=== PATIENT | male | born 1940 | race Caucasian/White ===

== ENCOUNTER 2019-03-03 05:02 | Inpatient (IN) | payer MEDICARE, BC ==
[2019-02-26 09:38] LABS: BASOPHILS # (AUTO) 0.1 X10'3 (0-0.2); BASOPHILS % (AUTO) 0.6 % (0-1); EOSINOPHILS # (AUTO) 0.2 X10'3 (0-0.9); EOSINOPHILS % (AUTO) 2.3 % (0-6); HEMATOCRIT 42.1 % (42.0-52.0); HEMOGLOBIN 14.3 g/dl (14.0-17.9); LYMPHOCYTES # (AUTO) 2.7 X10'3 (1.1-4.8); LYMPHOCYTES % (AUTO) 29.5 % (21-51); MEAN CORPUSCULAR HEMOGLOBIN 34.5 PG (27.0-31.0); MEAN CORPUSCULAR VOLUME 101.5 FL (78-98); MEAN PLATELET VOLUME 8.3 FL (7.4-10.4); MONOCYTES % (AUTO) 10.9 % (2-12); NEUTROPHILS # (AUTO) 5.2 X10'3 (1.8-7.7); NEUTROPHILS % (AUTO) 56.7 % (42-75); PLATELET COUNT 297 X10'3 (140-440); RED BLOOD COUNT 4.15 X10'6 (4.70-6.10); RED CELL DISTRIBUTION WIDTH 14.8 % (11.5-14.5); WHITE BLOOD COUNT 9.3 X10'3 (4.5-11.0)
[2019-02-26 09:42] LABS: ALBUMIN 3.8 G/DL (3.4-5.0); ANION GAP 8 (8-16); BLOOD UREA NITROGEN 17 MG/DL (7-18); CALCIUM 9.6 MG/DL (8.5-10.1); CHLORIDE 108 MMOL/L (99-107); GLUCOSE 101 MG/DL (70-104); POTASSIUM 3.7 MMOL/L (3.5-5.1); SODIUM 143 MMOL/L (135-145); TOTAL CARBON DIOXIDE 26.7 MMOL/L (24-32); eGFR 73 ML/MIN
[2019-02-26 09:48] LABS: PARTIAL THROMBOPLASTIN TIME 25 SECONDS (22-32)
[2019-03-03] VITALS (17 sets, daily range): BP systolic 116–164; BP diastolic 66–93
[~2019-03-03] VITALS: Ht 182.9 cm; Wt 81.5 kg
[2019-03-03] MEDS ORDERED: LIDOcaine/PRILOcaine 5gm cream TP ONE (05:25)
[2019-03-03] MEDS ORDERED: diphenhydrAMINE 25mg capsule PO PRN (05:25)
[2019-03-03] MEDS ORDERED: LORazepam 0.5 MG tablet PO PRN (05:25)
[2019-03-03] MEDS ORDERED: ZOLP10TA5 PO (05:43)
[2019-03-03] MEDS ORDERED: VITA-268 PO (05:43)
[2019-03-03] MEDS ORDERED: EVOL140S (05:43)
[2019-03-03] MEDS ORDERED: MULT-1085 PO (05:43)
[2019-03-03] MEDS ORDERED: ATOR10TA87 PO (05:43)
[2019-03-03] MEDS ORDERED: IODI150T (05:43)
[2019-03-03] MEDS ORDERED: OMEGA 3 (05:43)
[2019-03-03] MEDS ORDERED: FLO0.4C PO (05:43)
[2019-03-03] MEDS ORDERED: ASPI-611 PO (05:43)
[2019-03-03] MEDS ORDERED: ALLO300T8 PO (05:43)
[2019-03-03] MEDS: normal saline 1,000 ML IV SCH ×2 (05:49→11:12)
[2019-03-03] MEDS ORDERED: fentaNYL/PF 50MCG/1 ML 2ML syringe ONE (05:59)
[2019-03-03] MEDS ORDERED: midazolam 2 mg/2 ml injection ONE (05:59)
[2019-03-03] MEDS ORDERED: LIDOcaine 1% (10mg/ml)w/preservative injection 20ml MDV ONE (06:00)
[2019-03-03] MEDS ORDERED: iohexol 350MG/ML 100ml bottle IV ONE (06:00)
[2019-03-03] MEDS ORDERED: heparin 1,000unit/ml 10ml vial 10 ML ONE (06:27)
[2019-03-03] MEDS ORDERED: verapamil 2.5 mg/ml inj IV ONE (06:27)
[2019-03-03] MEDS ORDERED: nitroGLYCERIN-Tridil 50MG/D5W 250 ML IV ONE (06:27)
[2019-03-03] MEDS ORDERED: OXAZEpam 15mg capsule PO PRN (07:35)
[2019-03-03] MEDS ORDERED: HYDROcodone/acetaminophen 5mg/325mg tablet PO PRN (07:35)
[2019-03-03] MEDS ORDERED: ondansetron/PF 4mg/2ml inj IV PRN (07:35)
[2019-03-03] MEDS ORDERED: acetaminophen 325mg tablet PO PRN (07:35)
[2019-03-03] MEDS ORDERED: proCHLORperazine 10 MG/2 ml inj IV PRN (07:35)
[2019-03-03] MEDS ORDERED: LIDOcaine 2% (20 mg/ml) 5ml cardiac syringe ONE (08:00)
[2019-03-03] MEDS ORDERED: heparin 10,000 units/1 ML INJ ONE ×2 (08:00)
[2019-03-03] MEDS ORDERED: phenylephrine 10mg/ml inj. ONE (08:00)
[2019-03-03] MEDS ORDERED: calcium chloride 100 MG/1 ML inj IV ONE (08:00)
[2019-03-03] MEDS ORDERED: aminocaproic acid 250 MG/1 ML inj. ONE (08:00)
[2019-03-03] MEDS ORDERED: sodium bicarbonate (8.4%) 1 mEq/ml syringe ONE (08:00)
[2019-03-03] MEDS ORDERED: methylPREDNISolone sod. succ. 500mg inj ONE (08:00)
[2019-03-03] MEDS ORDERED: magnesium 1 GM/2 ML inj ONE (08:00)
[2019-03-03] MEDS ORDERED: albumin (human) 25% 100 ML IV solution IV ONE (08:00)
[2019-03-03] MEDS: HYDROcodone/acetaminophen 10/325mg tab PO PRN ×2 (10:11→20:35)
--- NOTE | 2019-03-03 10:45 | NUR ---
Problems reprioritized. Patient report given, questions answered & plan of care reviewed with CARLOS CONTRERAS.
--- NOTE | 2019-03-03 10:55 | NUR ---
Patient in room MED 307. I have received report from CARLOS Denny and had the opportunity to ask questions and assume patient care.
[2019-03-03] MEDS ORDERED: insulin regular, human 100 UNIT in normal saline 100ml IV soln 100 ML IV SCH ×2 (12:04)
[2019-03-03] MEDS ORDERED: dextrose 50%-water 50ml dispensing syringe IV PRN (12:05)
[2019-03-03] MEDS ORDERED: magnesium 2GM in 50ml NS 50 ML IV PRN (12:05)
[2019-03-03] MEDS ORDERED: potassium Cl 20mEq/100mL bag 100 ML IV PRN (12:05)
[2019-03-03] MEDS ORDERED: potassium Cl 20 mEq SR tablet PO PRN (12:05)
[2019-03-03] MEDS ORDERED: magnesium 4gm in 100ml NS 100 ML IV PRN (12:05)
[2019-03-03] MEDS ORDERED: insulin glargine (Lantus) pen - multi-dose SQ PRN (12:05)
[2019-03-03] MEDS ORDERED: MALTODEXTRIN/FRUCTOSE 0.68 KCAL/ML LIQUID 296ML BOTTLE PO ONE (12:05)
[2019-03-03] MEDS ORDERED: gabapentin 400mg capsule PO ONE (12:05)
[2019-03-03] MEDS ORDERED: MESSAGE TO NURSING PO ONE ×4 (12:05)
[2019-03-03 12:34] LABS: HEMATOCRIT 39.5 % (42.0-52.0); HEMOGLOBIN 13.3 g/dl (14.0-17.9); MEAN CORPUSCULAR HEMOGLOBIN 34.4 PG (27.0-31.0); MEAN CORPUSCULAR HGB CONC 33.7 g/dL (33.0-36.5); MEAN CORPUSCULAR VOLUME 102.1 FL (78-98); MEAN PLATELET VOLUME 8.2 FL (7.4-10.4); PLATELET COUNT 262 X10'3 (140-440); RED BLOOD COUNT 3.86 X10'6 (4.70-6.10); RED CELL DISTRIBUTION WIDTH 14.5 % (11.5-14.5); WHITE BLOOD COUNT 9.4 X10'3 (4.5-11.0)
[2019-03-03 12:46] LABS: HEMOGLOBIN A1C 5.3 % (4.5-6.2)
[2019-03-03] MEDS ORDERED: ringers solution, lacted 1,000 ML IV ONE (12:59)
[2019-03-03 13:23] LABS: ALBUMIN 3.3 G/DL (3.4-5.0); ANION GAP 7 (8-16); BLOOD UREA NITROGEN 17 MG/DL (7-18); BUN/CREATININE RATIO 19.1 (5.4-32.0); CALCIUM 8.8 MG/DL (8.5-10.1); CHLORIDE 109 MMOL/L (99-107); CHOL/HDL RATIO 1.6 (0.00-4.99); CHOLESTEROL 120 MG/DL (0-200); CREATININE 0.89 MG/DL (0.60-1.10); GLUCOSE 95 MG/DL (70-104); HDL CHOLESTEROL 73 MG/DL (35-60); LDL CHOLESTEROL 41 MG/DL (50-100); POTASSIUM 3.9 MMOL/L (3.5-5.1); SODIUM 144 MMOL/L (135-145); TOTAL CARBON DIOXIDE 28.3 MMOL/L (24-32); TRIGLYCERIDES 65 MG/DL (20-135); eGFR 83 ML/MIN
--- NOTE | 2019-03-03 18:10 | NUR ---
Problems reprioritized. Patient report given, questions answered & plan of care reviewed with CARLOS Cleveland.
--- NOTE | 2019-03-03 18:15 | NUR ---
Patient in room MED 307. I have received report from CARLOS Gill and had the opportunity to ask questions and assume patient care.
[2019-03-03] MEDS ORDERED: metoprolol tartrate 12.5mg (1/2 tablet) PO SCH (20:00)
[2019-03-03] MEDS: mupirocin 2% nasal ointment 1gm UD NS SCH (20:30)
[2019-03-03] MEDS ORDERED: zolpidem 5mg tablet PO PRN (21:00)
[2019-03-03 21:11] LABS: ABG BASE EXCESS -0.1 mmol/L (-2.0-3.0); ABG HCO3 23.9 mmol/L (22.0-26.0); ABG OXYGEN SATURATION 96.1 % (95-98); ABG PCO2 (T) 36.6 mmHg (35.0-45.0); ABG PH (T) 7.432 (7.350-7.450); ABG PO2 (T) 80.2 mmHg (83-108); ALLEN'S TEST Positive; FCOHb 0.1 % (0.5-1.5); FMetHb 0.1 % (0.3-1.12); FO2Hb 95.9 % (94-100); RESPIRATORY RATE (OBSERVED) 16 b/min; TOTAL HEMOGLOBIN 13.1 G/dl (14.0-17.9)
[2019-03-04] VITALS (17 sets, daily range): BP systolic 82–145; BP diastolic 3–82
[2019-03-04] MEDS: normal saline 1,000 ML IV SCH (01:25)
[2019-03-04] MEDS: HYDROcodone/acetaminophen 10/325mg tab PO PRN ×2 (02:26→20:04)
[2019-03-04] MEDS ORDERED: ceFAZolin 1GM/D5W- ADD-VANTAGE 50 ML IV ONE ×2 (02:50→05:30)
[2019-03-04 05:18] LABS: BASOPHILS # (AUTO) 0.1 X10'3 (0-0.2); BASOPHILS % (AUTO) 0.6 % (0-1); EOSINOPHILS # (AUTO) 0.1 X10'3 (0-0.9); EOSINOPHILS % (AUTO) 0.7 % (0-6); HEMATOCRIT 40.5 % (42.0-52.0); HEMOGLOBIN 13.6 g/dl (14.0-17.9); LYMPHOCYTES # (AUTO) 1.8 X10'3 (1.1-4.8); LYMPHOCYTES % (AUTO) 15.5 % (21-51); MEAN CORPUSCULAR HEMOGLOBIN 34.4 PG (27.0-31.0); MEAN CORPUSCULAR HGB CONC 33.6 g/dL (33.0-36.5); MEAN CORPUSCULAR VOLUME 102.4 FL (78-98); MEAN PLATELET VOLUME 8.5 FL (7.4-10.4); MONOCYTES # (AUTO) 0.8 X10'3 (0-0.9); MONOCYTES % (AUTO) 7.2 % (2-12); NEUTROPHILS # (AUTO) 8.6 X10'3 (1.8-7.7); PLATELET COUNT 253 X10'3 (140-440); RED BLOOD COUNT 3.95 X10'6 (4.70-6.10); RED CELL DISTRIBUTION WIDTH 14.5 % (11.5-14.5); WHITE BLOOD COUNT 11.4 X10'3 (4.5-11.0)
[2019-03-04 05:22] LABS: ALBUMIN 3.4 G/DL (3.4-5.0); ANION GAP 9 (8-16); BLOOD UREA NITROGEN 15 MG/DL (7-18); CALCIUM 8.8 MG/DL (8.5-10.1); CHLORIDE 106 MMOL/L (99-107); GLUCOSE 97 MG/DL (70-104); POTASSIUM 4.3 MMOL/L (3.5-5.1); SODIUM 141 MMOL/L (135-145); TOTAL CARBON DIOXIDE 26.4 MMOL/L (24-32); eGFR 73 ML/MIN
[2019-03-04] MEDS ORDERED: vancomycin/NS 1 GM ADD-VANTAGE 250 ML X 1 DOSE IV ONE (05:30)
[2019-03-04] MEDS ORDERED: insulin regular, human 100 UNIT in normal saline 100ml IV soln 100 ML IV SCH ×2 (05:30)
[2019-03-04] MEDS: mupirocin 2% nasal ointment 1gm UD NS SCH ×2 (05:33→20:03)
[2019-03-04] MEDS ORDERED: famotidine 20mg tablet PO ONE (06:00)
[2019-03-04] MEDS ORDERED: LORazepam 2 mg/ml vial IV ONE (06:00)
--- NOTE | 2019-03-04 06:00 | NUR ---
Patient in room MED 307. I have received report from CARLOS Cleveland and had the opportunity to ask questions and assume patient care.
--- NOTE | 2019-03-04 06:00 | NUR ---
Problems reprioritized. Patient report given, questions answered & plan of care reviewed with CARLOS YOUNGER AND CARLOS DOOLEY.
[2019-03-04] MEDS ORDERED: ceFAZolin 1000mg inj ONE ×2 (06:10→09:16)
[2019-03-04] MEDS ORDERED: SUFENTANIL CITRATE 50 MCG/ML 2ml ampule IV ONE ×2 (06:58→11:38)
[2019-03-04] MEDS ORDERED: midazolam 2 mg/2 ml injection ONE (06:58)
--- NOTE | 2019-03-04 07:10 | NUR ---
Patient left to [facility] at 0710.
[2019-03-04] MEDS ORDERED: protamine sulf. 10mg/ml inj. IV ONE (07:18)
[2019-03-04] MEDS ORDERED: isoflurane 100ml inhalation liquid IH ONE (07:18)
[2019-03-04] MEDS ORDERED: DOPamine/D5W 400mg/250ml bag IV ONE (07:18)
[2019-03-04] MEDS ORDERED: INSULIN R 100 UNIT in NS 100ML (1 UNIT/1 ML) BAG IV ONE (07:18)
[2019-03-04] MEDS ORDERED: nitroGLYCERIN in D5W 50mg/250ml (Tridil) infusion IV ONE (07:18)
[2019-03-04] MEDS ORDERED: aspirin 81mg tablet.DR PO SCH (08:00)
[2019-03-04] MEDS ORDERED: vitamin B comp w/Vit. C tab 1 TAB TABLET PO SCH (08:00)
[2019-03-04] MEDS ORDERED: multivitamins, therapeutics tablet PO SCH (08:00)
[2019-03-04] MEDS: allopurinol 300 MG tablet PO SCH (08:00)
[2019-03-04] MEDS: atorvastatin 10mg tablet PO SCH (08:00)
[2019-03-04] MEDS ORDERED: tamsulosin 0.4mg capsule PO SCH (08:00)
[2019-03-04 08:05] LABS: ABG BASE EXCESS -2.3 mmol/L (-2.0-3.0); ABG HCO3 21.4 mmol/L (22.0-26.0); ABG OXYGEN SATURATION 99.9 % (95-98); ABG PCO2 33.5 mmHg (35.0-45.0); ABG PH 7.423 (7.350-7.450); ABG PO2 389.1 mmHg (60.0-100.0); CL (ABG) 104 mmol/L (99-107); FCOHb 0.6 % (0.5-1.5); FMetHb 0.2 % (0.3-1.12); FO2Hb 99.1 % (94-100); GLUCOSE (ABG) 85 mg/dl (70-104); IONIZED CA (ABG) 1.16 mmol/L (1.03-1.32); K (ABG) 3.6 mmol/L (3.3-5.1); NA (ABG) 137 mmol/L (135-145); TOTAL HEMOGLOBIN 12.3 G/dl (14.0-17.9)
[2019-03-04 08:55] LABS: ABG BASE EXCESS VENOUS -1.8 mmol/L; ABG HCO3 VENOUS 23.6 mmol/L; ABG PCO2 VENOUS 42.9 mmHg; ABG PO2 VENOUS 44.1 mmHg; CL (ABG) 102 mmol/L (99-107); FCOHb VENOUS 0.6 %; FHHb VENOUS 20.6 %; FMetHb VENOUS 0.3 %; FO2Hb VENOUS 78.5 %; GLUCOSE (ABG) 87 mg/dl (70-104); IONIZED CA (ABG) 1.16 mmol/L (1.03-1.32); K (ABG) 3.7 mmol/L (3.3-5.1); NA (ABG) 135 mmol/L (135-145); TOTAL HEMOGLOBIN 12.2 G/dl (14.0-17.9)
[2019-03-04 09:10] LABS: ACT @ 1.70 U 289 SEC (193-297); ACT @ 2.84 U 406 SEC (260-420); BASELINE ACT 138 SEC (101-148); PATIENT WEIGHT 78.0k KG
[2019-03-04 09:10] LABS: ABG PCO2 VENOUS 49.5 mmHg; ABG PO2 VENOUS 64.8 mmHg; CL (ABG) 99 mmol/L (99-107); FCOHb VENOUS 0.4 %; FHHb VENOUS 8.8 %; FMetHb VENOUS 0.3 %; FO2Hb VENOUS 90.5 %; GLUCOSE (ABG) 87 mg/dl (70-104); IONIZED CA (ABG) 1.01 mmol/L (1.03-1.32); K (ABG) 3.5 mmol/L (3.3-5.1); NA (ABG) 136 mmol/L (135-145); TOTAL HEMOGLOBIN 9.5 G/dl (14.0-17.9)
[2019-03-04] MEDS ORDERED: ipratropium/albuterol 3ml nebule IH PRN (09:10)
[2019-03-04] MEDS ORDERED: epiNEPHrine 1 mg/ml inj ONE (09:16)
[2019-03-04] MEDS ORDERED: ePHEDrine 50MG/ML INJ. ONE (09:16)
[2019-03-04] MEDS ORDERED: LIDOcaine 2% (20mg/ml) 5ml vial ONE (09:16)
[2019-03-04] MEDS ORDERED: phenylephrine 10mg/ml inj. ONE (09:16)
[2019-03-04] MEDS ORDERED: etomidate 2mg/ml inj. ONE (09:16)
[2019-03-04] MEDS ORDERED: rocuronium 10mg/ml inj IV ONE (09:16)
[2019-03-04 09:21] LABS: ABG BASE EXCESS -0.6 mmol/L (-2.0-3.0); ABG HCO3 23.9 mmol/L (22.0-26.0); ABG OXYGEN SATURATION 99.4 % (95-98); ABG PCO2 38.6 mmHg (35.0-45.0); ABG PO2 450.5 mmHg (60.0-100.0); CL (ABG) 100 mmol/L (99-107); FCOHb 0.3 % (0.5-1.5); FMetHb 0.3 % (0.3-1.12); FO2Hb 98.8 % (94-100); GLUCOSE (ABG) 86 mg/dl (70-104); IONIZED CA (ABG) 1.05 mmol/L (1.03-1.32); K (ABG) 4.1 mmol/L (3.3-5.1); NA (ABG) 134 mmol/L (135-145); TOTAL HEMOGLOBIN 9.8 G/dl (14.0-17.9)
[2019-03-04 09:56] LABS: ABG BASE EXCESS -0.7 mmol/L (-2.0-3.0); ABG HCO3 23.5 mmol/L (22.0-26.0); ABG OXYGEN SATURATION 99.4 % (95-98); ABG PCO2 36.5 mmHg (35.0-45.0); ABG PH 7.426 (7.350-7.450); ABG PO2 339.4 mmHg (60.0-100.0); CL (ABG) 101 mmol/L (99-107); FCOHb 0.2 % (0.5-1.5); FMetHb 0.2 % (0.3-1.12); GLUCOSE (ABG) 95 mg/dl (70-104); IONIZED CA (ABG) 1.05 mmol/L (1.03-1.32); K (ABG) 4.1 mmol/L (3.3-5.1); NA (ABG) 134 mmol/L (135-145); TOTAL HEMOGLOBIN 10.1 G/dl (14.0-17.9)
[2019-03-04] MEDS ORDERED: MESSAGE TO NURSING PO ONE (10:00)
[2019-03-04 10:10] LABS: ABG BASE EXCESS 0.9 mmol/L (-2.0-3.0); ABG HCO3 25.2 mmol/L (22.0-26.0); ABG OXYGEN SATURATION 99.4 % (95-98); ABG PCO2 38.9 mmHg (35.0-45.0); ABG PO2 319.8 mmHg (60.0-100.0); CL (ABG) 100 mmol/L (99-107); FCOHb 0.2 % (0.5-1.5); FMetHb 0.1 % (0.3-1.12); FO2Hb 99.1 % (94-100); GLUCOSE (ABG) 94 mg/dl (70-104); IONIZED CA (ABG) 1.16 mmol/L (1.03-1.32); K (ABG) 3.6 mmol/L (3.3-5.1); NA (ABG) 133 mmol/L (135-145); TOTAL HEMOGLOBIN 9.6 G/dl (14.0-17.9)
--- NOTE | 2019-03-04 10:38 | NUR ---
[place] documentation and med administration: I have reviewed and agree with all interventions, assessments performed and documented by Bridget GONZALEZ.
[2019-03-04 10:40] LABS: ABG BASE EXCESS 0.7 mmol/L (-2.0-3.0); ABG HCO3 23.9 mmol/L (22.0-26.0); ABG OXYGEN SATURATION 99.2 % (95-98); ABG PCO2 33.2 mmHg (35.0-45.0); ABG PH 7.476 (7.350-7.450); ABG PO2 300.5 mmHg (60.0-100.0); CL (ABG) 101 mmol/L (99-107); FCOHb 0.1 % (0.5-1.5); FMetHb 0.6 % (0.3-1.12); FO2Hb 98.5 % (94-100); GLUCOSE (ABG) 97 mg/dl (70-104); IONIZED CA (ABG) 1.19 mmol/L (1.03-1.32); NA (ABG) 133 mmol/L (135-145); TOTAL HEMOGLOBIN 9.8 G/dl (14.0-17.9)
[2019-03-04 11:01] LABS: ABG BASE EXCESS VENOUS 0.5 mmol/L; ABG HCO3 VENOUS 25.5 mmol/L; ABG PCO2 VENOUS 42.6 mmHg; ABG PO2 VENOUS 44.3 mmHg; CL (ABG) 102 mmol/L (99-107); FCOHb VENOUS 0.7 %; FHHb VENOUS 20.7 %; FMetHb VENOUS 0.4 %; FO2Hb VENOUS 78.2 %; GLUCOSE (ABG) 99 mg/dl (70-104); IONIZED CA (ABG) 1.17 mmol/L (1.03-1.32); K (ABG) 3.8 mmol/L (3.3-5.1); NA (ABG) 135 mmol/L (135-145); TOTAL HEMOGLOBIN 10.1 G/dl (14.0-17.9)
[2019-03-04] MEDS ORDERED: niCARDipine-NS 40mg/200ml IVPB 200 ML IV PRN (11:23)
[2019-03-04] MEDS ORDERED: nitroGLYCERIN-Tridil 50MG/D5W 250 ML IV SCH (11:23)
[2019-03-04] MEDS ORDERED: sodium chloride 0.45% 1,000 ML IV SCH (11:23)
[2019-03-04] MEDS ORDERED: ondansetron/PF 4mg/2ml inj IV PRN (11:25)
[2019-03-04] MEDS ORDERED: metoclopramide 5 mg/ml inj IV PRN (11:25)
[2019-03-04] MEDS ORDERED: dextrose 50%-water 50ml dispensing syringe IV PRN (11:25)
[2019-03-04] MEDS ORDERED: acetaminophen 325mg tablet PO PRN ×2 (11:25)
[2019-03-04] MEDS ORDERED: sodium phosphate inj. 30 MMOL in dextrose 5%-water 250 ML IV PRN (11:25)
[2019-03-04] MEDS ORDERED: pantoprazole 40 MG vial IV ONE (11:25)
[2019-03-04] MEDS ORDERED: sodium phosphate inj. 15 MMOL in dextrose 5%-water 150 ML IV PRN (11:25)
[2019-03-04] MEDS ORDERED: magnesium 4gm in 100ml NS 100 ML IV PRN (11:25)
[2019-03-04] MEDS ORDERED: magnesium 2GM in 50ml NS 50 ML IV PRN (11:25)
[2019-03-04] MEDS ORDERED: Neutra Phos packet PO PRN (11:25)
[2019-03-04] MEDS: insulin regular, human inj. 100 UNITS in normal saline 100ml IV soln 100 ML IV SCH ×2 (11:25)
[2019-03-04] MEDS ORDERED: magnesium hydroxide 30ml (MOM) UD suspension PO PRN (11:25)
[2019-03-04] MEDS ORDERED: potassium Cl 20 mEq SR tablet PO PRN (11:25)
[2019-03-04 11:30] LABS: ACTIVATED CLOTTING TIME 125 SEC (101-148)
--- NOTE | 2019-03-04 11:45 | NUR ---
Received to room , accompanied by MDs and surgical crew. Placed on ventilator, to athletic monitor, arterial line and PA line pressure monitored. Chest tubes to suction at 20 cm. Marmolejo cath to gravity drainage. Dressings are dry and intact. See assessment record. All vasoactive drugs are infusing via central line.
[2019-03-04] MEDS: albumin (Human) 5% 250ml 250 ML IV PRN ×3 (11:59→13:51)
[2019-03-04 12:09] LABS: BASOPHILS % (AUTO) 0.2 % (0-1); EOSINOPHILS # (AUTO) 0.1 X10'3 (0-0.9); EOSINOPHILS % (AUTO) 0.5 % (0-6); HEMATOCRIT 29.8 % (42.0-52.0); HEMOGLOBIN 10.3 g/dl (14.0-17.9); LYMPHOCYTES % (AUTO) 6.5 % (21-51); MEAN CORPUSCULAR HGB CONC 34.5 g/dL (33.0-36.5); MEAN CORPUSCULAR VOLUME 101.5 FL (78-98); MEAN PLATELET VOLUME 8.3 FL (7.4-10.4); MONOCYTES # (AUTO) 0.9 X10'3 (0-0.9); MONOCYTES % (AUTO) 5.8 % (2-12); PLATELET COUNT 146 X10'3 (140-440); RED BLOOD COUNT 2.94 X10'6 (4.70-6.10); RED CELL DISTRIBUTION WIDTH 14.3 % (11.5-14.5); WHITE BLOOD COUNT 16.1 X10'3 (4.5-11.0)
[2019-03-04 12:10] LABS: ABG BASE EXCESS -0.9 mmol/L (-2.0-3.0); ABG HCO3 23.4 mmol/L (22.0-26.0); ABG OXYGEN SATURATION 98.1 % (95-98); ABG PCO2 (T) 34.2 mmHg (35.0-45.0); ABG PH (T) 7.445 (7.350-7.450); ABG PO2 (T) 122.1 mmHg (83-108); FCOHb 0.3 % (0.5-1.5); FMetHb 0.1 % (0.3-1.12); FO2Hb 97.7 % (94-100); MINUTE VOLUME 12 L/min; PATIENT TEMPERATURE 35.2; PEEP 5 cm H2O; RESPIRATORY RATE 12 b/min; RESPIRATORY RATE (OBSERVED) 25 b/min; TIDAL VOLUME 500 mL; TOTAL HEMOGLOBIN 11.3 G/dl (14.0-17.9)
[2019-03-04] MEDS: morphine 4 MG/ML inj SYRINge IV PRN ×6 (12:10→14:11)
[2019-03-04 12:23] LABS: PARTIAL THROMBOPLASTIN TIME 35 SECONDS (22-32)
[2019-03-04] MEDS: gabapentin 300mg capsule PO SCH ×2 (12:23→20:03)
[2019-03-04 12:24] LABS: ALANINE AMINOTRANSFERASE 18 U/L (12-78); ALBUMIN 2.8 G/DL (3.4-5.0); ALBUMIN/GLOBULIN RATIO 1.3 (1.1-1.5); ALKALINE PHOSPHATASE 47 IU/L (46-116); ANION GAP 11 (8-16); ASPARTATE AMINO TRANSFERASE 25 U/L (10-37); BILIRUBIN,TOTAL 0.9 MG/DL (0.1-1.0); BLOOD UREA NITROGEN 12 MG/DL (7-18); CALCIUM 7.9 MG/DL (8.5-10.1); CHLORIDE 107 MMOL/L (99-107); GLUCOSE 134 MG/DL (70-104); MAGNESIUM 1.6 MG/DL (1.5-2.4); PHOSPHORUS 2.7 MG/DL (2.3-4.5); POTASSIUM 3.7 MMOL/L (3.5-5.1); SODIUM 143 MMOL/L (135-145); TOTAL CARBON DIOXIDE 25.3 MMOL/L (24-32); eGFR > 90 ML/MIN
[2019-03-04] MEDS: insulin Lispro (HumaLOG) vial - multi-dose SQ SCH ×2 (13:00→18:00)
--- NOTE | 2019-03-04 13:53 | NUR ---
CABG Consult: Pt s/p CABGx4 and will need CABG diet ed once stable prior to d/c. Addendum: 03/04/19 at [address] Amended: Links added.
[2019-03-04] MEDS ORDERED: albumin (Human) 5% 250ml 250 ML IV PRN (14:00)
[2019-03-04] MEDS ORDERED: NORepinephrine 8mg/ 250ml NS 250 ML IV ONE (15:43)
[2019-03-04] MEDS: potassium Cl 20mEq/100mL bag 100 ML IV PRN ×3 (16:16→18:36)
[2019-03-04] MEDS: ceFAZolin 1GM/D5W- ADD-VANTAGE 50 ML IV SCH (16:41)
[2019-03-04 17:28] LABS: BASOPHILS % (AUTO) 0.2 % (0-1); EOSINOPHILS % (AUTO) 0 % (0-6); HEMATOCRIT 23.1 % (42.0-52.0); LYMPHOCYTES # (AUTO) 0.4 X10'3 (1.1-4.8); LYMPHOCYTES % (AUTO) 3.3 % (21-51); MEAN CORPUSCULAR HEMOGLOBIN 35.3 PG (27.0-31.0); MEAN CORPUSCULAR HGB CONC 34.7 g/dL (33.0-36.5); MEAN CORPUSCULAR VOLUME 101.9 FL (78-98); MEAN PLATELET VOLUME 8.4 FL (7.4-10.4); MONOCYTES # (AUTO) 0.5 X10'3 (0-0.9); MONOCYTES % (AUTO) 4.9 % (2-12); NEUTROPHILS # (AUTO) 9.9 X10'3 (1.8-7.7); NEUTROPHILS % (AUTO) 91.6 % (42-75); PLATELET COUNT 118 X10'3 (140-440); RED BLOOD COUNT 2.26 X10'6 (4.70-6.10); RED CELL DISTRIBUTION WIDTH 14.2 % (11.5-14.5); WHITE BLOOD COUNT 10.8 X10'3 (4.5-11.0)
[2019-03-04 17:36] LABS: ABG BASE EXCESS -3.8 mmol/L (-2.0-3.0); ABG HCO3 19.6 mmol/L (22.0-26.0); ABG OXYGEN SATURATION 97.7 % (95-98); ABG PCO2 (T) 28.6 mmHg (35.0-45.0); ABG PH (T) 7.452 (7.350-7.450); ABG PO2 (T) 119.8 mmHg (83-108); FCOHb 0.3 % (0.5-1.5); FMetHb 0.1 % (0.3-1.12); FO2Hb 97.3 % (94-100); MINUTE VOLUME 10 L/min; PATIENT TEMPERATURE 36.7; PEEP 5 cm H2O; RESPIRATORY RATE (OBSERVED) 25 b/min; TIDAL VOLUME 474 mL; TOTAL HEMOGLOBIN 8.8 G/dl (14.0-17.9)
[2019-03-04 17:40] LABS: ALBUMIN 3.2 G/DL (3.4-5.0); ANION GAP 9 (8-16); BLOOD UREA NITROGEN 12 MG/DL (7-18); BUN/CREATININE RATIO 14.6 (5.4-32.0); CHLORIDE 113 MMOL/L (99-107); CREATININE 0.82 MG/DL (0.60-1.10); GLUCOSE 109 MG/DL (70-104); POTASSIUM 3.7 MMOL/L (3.5-5.1); SODIUM 145 MMOL/L (135-145); TOTAL CARBON DIOXIDE 22.6 MMOL/L (24-32); eGFR > 90 ML/MIN
[2019-03-04 17:47] LABS: PHOSPHORUS 1.2 MG/DL (2.3-4.5)
--- NOTE | 2019-03-04 18:25 | NUR ---
Problems reprioritized. Patient report given, questions answered & plan of care reviewed with maris Chiu.
[2019-03-04] MEDS: vancomycin/NS 1 GM ADD-VANTAGE 250 ML IV SCH (20:03)
[2019-03-04] MEDS: docusate sod 100mg capsule PO SCH (20:03)
[2019-03-04] MEDS: NORepinephrine 8mg/ 250ml NS 250 ML IV SCH (22:46)
[2019-03-05] VITALS (26 sets, daily range): BP systolic 80–122; BP diastolic 43–60
[2019-03-05] MEDS: ceFAZolin 1GM/D5W- ADD-VANTAGE 50 ML IV SCH ×4 (00:31→23:59)
[2019-03-05 01:25] LABS: BASOPHILS % (AUTO) 0 % (0-1); EOSINOPHILS % (AUTO) 0 % (0-6); HEMOGLOBIN 7.2 g/dl (14.0-17.9); LYMPHOCYTES # (AUTO) 0.7 X10'3 (1.1-4.8); LYMPHOCYTES % (AUTO) 6.2 % (21-51); MEAN CORPUSCULAR HEMOGLOBIN 35.2 PG (27.0-31.0); MEAN CORPUSCULAR HGB CONC 34.6 g/dL (33.0-36.5); MEAN CORPUSCULAR VOLUME 101.9 FL (78-98); MEAN PLATELET VOLUME 8.5 FL (7.4-10.4); MONOCYTES % (AUTO) 9.5 % (2-12); NEUTROPHILS # (AUTO) 9.3 X10'3 (1.8-7.7); NEUTROPHILS % (AUTO) 84.3 % (42-75); PLATELET COUNT 118 X10'3 (140-440); RED BLOOD COUNT 2.04 X10'6 (4.70-6.10); RED CELL DISTRIBUTION WIDTH 14.1 % (11.5-14.5)
[2019-03-05 01:27] LABS: HEMATOCRIT 20.7 % (42.0-52.0)
[2019-03-05 01:40] LABS: ALANINE AMINOTRANSFERASE 18 U/L (12-78); ALBUMIN 2.8 G/DL (3.4-5.0); ALBUMIN/GLOBULIN RATIO 1.5 (1.1-1.5); ALKALINE PHOSPHATASE 33 IU/L (46-116); ANION GAP 8 (8-16); ASPARTATE AMINO TRANSFERASE 23 U/L (10-37); BILIRUBIN,TOTAL 0.9 MG/DL (0.1-1.0); BLOOD UREA NITROGEN 14 MG/DL (7-18); BUN/CREATININE RATIO 17.7 (5.4-32.0); CALCIUM 7.6 MG/DL (8.5-10.1); CHLORIDE 113 MMOL/L (99-107); CREATININE 0.79 MG/DL (0.60-1.10); GLUCOSE 148 MG/DL (70-104); MAGNESIUM 2.3 MG/DL (1.5-2.4); PHOSPHORUS 3.7 MG/DL (2.3-4.5); POTASSIUM 4.4 MMOL/L (3.5-5.1); SODIUM 145 MMOL/L (135-145); TOTAL PROTEIN 4.7 G/DL (6.4-8.2); eGFR > 90 ML/MIN
[2019-03-05] MEDS: potassium Cl 20mEq/100mL bag 100 ML IV PRN ×2 (04:57→06:04)
--- NOTE | 2019-03-05 06:32 | NUR ---
Problems reprioritized. Patient report given, questions answered & plan of care reviewed with Edilberto GONZALEZ.
[2019-03-05] MEDS ORDERED: niCARDipine-NS 40mg/200ml IVPB 200 ML IV PRN (07:25)
[2019-03-05] MEDS: atorvastatin 10mg tablet PO SCH (08:19)
[2019-03-05] MEDS: docusate sod 100mg capsule PO SCH ×2 (08:19→20:41)
[2019-03-05] MEDS: aspirin 325mg tablet, delayed-release (Ecotrin) PO SCH (08:19)
[2019-03-05] MEDS: gabapentin 300mg capsule PO SCH ×3 (08:19→20:41)
[2019-03-05] MEDS: allopurinol 300 MG tablet PO SCH (08:19)
[2019-03-05] MEDS: vancomycin/NS 1 GM ADD-VANTAGE 250 ML IV SCH ×2 (08:22→20:42)
[2019-03-05] MEDS: mupirocin 2% nasal ointment 1gm UD NS SCH ×2 (08:22→20:42)
[2019-03-05] MEDS: insulin Lispro (HumaLOG) vial - multi-dose SQ SCH ×2 (09:00→18:00)
[2019-03-05 10:57] LABS: HEMOGLOBIN 7.6 g/dl (14.0-17.9); MEAN CORPUSCULAR HGB CONC 33.1 g/dL (33.0-36.5); MEAN CORPUSCULAR VOLUME 99.9 FL (78-98); MEAN PLATELET VOLUME 8.3 FL (7.4-10.4); PLATELET COUNT 103 X10'3 (140-440); RED CELL DISTRIBUTION WIDTH 16.3 % (11.5-14.5); WHITE BLOOD COUNT 16.4 X10'3 (4.5-11.0)
[2019-03-05] MEDS: insulin regular, human inj. 100 UNITS in normal saline 100ml IV soln 100 ML IV SCH ×2 (11:25)
--- NOTE | 2019-03-05 18:35 | NUR ---
Problems reprioritized. Patient report given, questions answered & plan of care reviewed with Mike GONZALEZ.
--- NOTE | 2019-03-05 18:41 | NUR ---
183..Patient in room ICU 2045. I have received report from Aviva GONZALEZ and had the opportunity to ask questions and assume patient care.
[2019-03-05] MEDS: lactobacillus rhamnosus 10,000 MMU CELLS/CAPSULE PO SCH (20:41)
[2019-03-05] MEDS: tamsulosin 0.4mg capsule PO SCH (20:41)
[2019-03-05] MEDS: HYDROcodone/acetaminophen 10/325mg tab PO PRN (20:42)
--- NOTE | 2019-03-05 22:52 | NUR ---
2000..Assessment as noted, family visiting at bedside.
--- NOTE | 2019-03-05 22:52 | NUR ---
2200..Medicated with norco for complaints of incisional pain, with good effect, no other changes noted.
[2019-03-06] VITALS (27 sets, daily range): BP systolic 84–127; BP diastolic 44–64
--- NOTE | 2019-03-06 00:07 | NUR ---
0000..Resting quietly, eyes closed, resp easy and nonlabored. No changes noted.
--- NOTE | 2019-03-06 04:33 | NUR ---
0400..No changes noted.
[2019-03-06 05:32] LABS: BASOPHILS % (AUTO) 0 % (0-1); EOSINOPHILS % (AUTO) 0 % (0-6); LYMPHOCYTES # (AUTO) 1.5 X10'3 (1.1-4.8); LYMPHOCYTES % (AUTO) 8.4 % (21-51); MEAN CORPUSCULAR HEMOGLOBIN 33.3 PG (27.0-31.0); MEAN CORPUSCULAR HGB CONC 33.7 g/dL (33.0-36.5); MEAN CORPUSCULAR VOLUME 98.8 FL (78-98); MEAN PLATELET VOLUME 9.4 FL (7.4-10.4); MONOCYTES # (AUTO) 1.9 X10'3 (0-0.9); MONOCYTES % (AUTO) 10.4 % (2-12); NEUTROPHILS # (AUTO) 14.6 X10'3 (1.8-7.7); NEUTROPHILS % (AUTO) 81.2 % (42-75); PLATELET COUNT 107 X10'3 (140-440); RED BLOOD COUNT 2.23 X10'6 (4.70-6.10); RED CELL DISTRIBUTION WIDTH 16.3 % (11.5-14.5)
[2019-03-06 05:39] LABS: HEMOGLOBIN 7.4 g/dl (14.0-17.9)
[2019-03-06 05:45] LABS: ALBUMIN 2.8 G/DL (3.4-5.0); ANION GAP 7 (8-16); BLOOD UREA NITROGEN 23 MG/DL (7-18); BUN/CREATININE RATIO 28.4 (5.4-32.0); CALCIUM 7.7 MG/DL (8.5-10.1); CHLORIDE 111 MMOL/L (99-107); CREATININE 0.81 MG/DL (0.60-1.10); GLUCOSE 132 MG/DL (70-104); PHOSPHORUS 2.8 MG/DL (2.3-4.5); POTASSIUM 5.1 MMOL/L (3.5-5.1); SODIUM 143 MMOL/L (135-145); TOTAL CARBON DIOXIDE 24.6 MMOL/L (24-32); eGFR > 90 ML/MIN
--- NOTE | 2019-03-06 06:21 | NUR ---
0620...Problems reprioritized. Patient report given, questions answered & plan of care reviewed with Donavan GONZALEZ.
[2019-03-06] MEDS: metoprolol tartrate 12.5mg (1/2 tablet) PO SCH ×3 (08:00→20:53)
[2019-03-06] MEDS: mupirocin 2% nasal ointment 1gm UD NS SCH (08:00)
[2019-03-06] MEDS: atorvastatin 10mg tablet PO SCH (08:20)
[2019-03-06] MEDS: gabapentin 300mg capsule PO SCH (08:20)
[2019-03-06] MEDS: lactobacillus rhamnosus 10,000 MMU CELLS/CAPSULE PO SCH ×2 (08:20→20:54)
[2019-03-06] MEDS: pantoprazole 40mg Tablet.DR PO SCH (08:20)
[2019-03-06] MEDS: allopurinol 300 MG tablet PO SCH (08:20)
[2019-03-06] MEDS: aspirin 325mg tablet, delayed-release (Ecotrin) PO SCH (08:20)
[2019-03-06] MEDS: docusate sod 100mg capsule PO SCH ×2 (08:20→20:53)
--- NOTE | 2019-03-06 08:48 | NUR ---
Problems reprioritized. Patient report given, questions answered & plan of care reviewed with Katerine Schwab .
[2019-03-06] MEDS: insulin Lispro (HumaLOG) vial - multi-dose SQ SCH ×3 (09:00→18:00)
[2019-03-06] MEDS: insulin regular, human inj. 100 UNITS in normal saline 100ml IV soln 100 ML IV SCH ×2 (11:25)
[2019-03-06] MEDS: HYDROcodone/acetaminophen 10/325mg tab PO PRN ×2 (14:40→20:54)
[2019-03-06] MEDS: NORepinephrine 8mg/ 250ml NS 250 ML IV SCH (15:35)
--- NOTE | 2019-03-06 15:36 | NUR ---
dcd art line per COLTEN
[2019-03-06 16:17] LABS: HEMATOCRIT 22.1 % (42.0-52.0); HEMOGLOBIN 7.5 g/dl (14.0-17.9); MEAN CORPUSCULAR HEMOGLOBIN 33.5 PG (27.0-31.0); MEAN CORPUSCULAR HGB CONC 33.8 g/dL (33.0-36.5); MEAN CORPUSCULAR VOLUME 99.3 FL (78-98); PLATELET COUNT 95 X10'3 (140-440); RED BLOOD COUNT 2.22 X10'6 (4.70-6.10); WHITE BLOOD COUNT 15.5 X10'3 (4.5-11.0)
--- NOTE | 2019-03-06 18:26 | NUR ---
gave report to shahram GONZALEZ
--- NOTE | 2019-03-06 18:44 | NUR ---
183..Patient in room ICU 2045. I have received report from Kadi GONZALEZ and had the opportunity to ask questions and assume patient care.
[2019-03-06] MEDS: tamsulosin 0.4mg capsule PO SCH (20:53)
--- NOTE | 2019-03-06 22:11 | NUR ---
2000..Assessment as noted, family visiting at bedside.
--- NOTE | 2019-03-06 22:12 | NUR ---
2100..Medicated for complaints of incisional pain with norco, per orders, with good effect.
[2019-03-07] VITALS (24 sets, daily range): BP systolic 84–139; BP diastolic 41–85
--- NOTE | 2019-03-07 00:15 | NUR ---
0000.. Resting quietly, eyes closed,resp easy and nonlabored, no changes noted.
[2019-03-07 03:46] LABS: BASOPHILS % (AUTO) 0.2 % (0-1); EOSINOPHILS # (AUTO) 0.1 X10'3 (0-0.9); EOSINOPHILS % (AUTO) 0.5 % (0-6); HEMATOCRIT 22.8 % (42.0-52.0); HEMOGLOBIN 7.6 g/dl (14.0-17.9); LYMPHOCYTES # (AUTO) 2.6 X10'3 (1.1-4.8); LYMPHOCYTES % (AUTO) 17.2 % (21-51); MEAN CORPUSCULAR HEMOGLOBIN 33.2 PG (27.0-31.0); MEAN CORPUSCULAR HGB CONC 33.2 g/dL (33.0-36.5); MEAN CORPUSCULAR VOLUME 99.9 FL (78-98); MEAN PLATELET VOLUME 9.3 FL (7.4-10.4); MONOCYTES # (AUTO) 1.8 X10'3 (0-0.9); MONOCYTES % (AUTO) 12.2 % (2-12); NEUTROPHILS # (AUTO) 10.5 X10'3 (1.8-7.7); NEUTROPHILS % (AUTO) 69.9 % (42-75); PLATELET COUNT 102 X10'3 (140-440); RED BLOOD COUNT 2.29 X10'6 (4.70-6.10); RED CELL DISTRIBUTION WIDTH 16.3 % (11.5-14.5)
[2019-03-07 04:05] LABS: ALBUMIN 2.4 G/DL (3.4-5.0); ANION GAP 4 (8-16); BLOOD UREA NITROGEN 26 MG/DL (7-18); BUN/CREATININE RATIO 27.7 (5.4-32.0); CALCIUM 7.8 MG/DL (8.5-10.1); CHLORIDE 109 MMOL/L (99-107); CREATININE 0.94 MG/DL (0.60-1.10); GLUCOSE 96 MG/DL (70-104); MAGNESIUM 1.7 MG/DL (1.5-2.4); PHOSPHORUS 2.8 MG/DL (2.3-4.5); POTASSIUM 4.5 MMOL/L (3.5-5.1); SODIUM 140 MMOL/L (135-145); TOTAL CARBON DIOXIDE 27.4 MMOL/L (24-32); eGFR 78 ML/MIN
--- NOTE | 2019-03-07 05:08 | NUR ---
0400..No changes noted.
--- NOTE | 2019-03-07 06:22 | NUR ---
1620..Problems reprioritized. Patient report given, questions answered & plan of care reviewed with Anand GONZALEZ.
--- NOTE | 2019-03-07 06:30 | NUR ---
Patient in room ICU 2045. I have received report from Gina Miguel RN and had the opportunity to ask questions and assume patient care.
[2019-03-07] MEDS ORDERED: potassium Cl 20mEq/100mL bag 100 ML IV PRN (08:20)
[2019-03-07] MEDS ORDERED: magnesium 4gm in 100ml NS 100 ML IV PRN (08:20)
[2019-03-07] MEDS ORDERED: magnesium 2GM in 50ml NS 50 ML IV PRN (08:20)
[2019-03-07] MEDS: allopurinol 300 MG tablet PO SCH (09:20)
[2019-03-07] MEDS: aspirin 325mg tablet, delayed-release (Ecotrin) PO SCH (09:20)
[2019-03-07] MEDS: docusate sod 100mg capsule PO SCH ×2 (09:21→22:25)
[2019-03-07] MEDS: HYDROcodone/acetaminophen 10/325mg tab PO PRN ×2 (09:23→17:37)
[2019-03-07] MEDS: lactobacillus rhamnosus 10,000 MMU CELLS/CAPSULE PO SCH ×2 (09:23→22:25)
[2019-03-07] MEDS: pantoprazole 40mg Tablet.DR PO SCH (09:24)
[2019-03-07] MEDS: atorvastatin 10mg tablet PO SCH (09:24)
[2019-03-07] MEDS: metoprolol tartrate 12.5mg (1/2 tablet) PO SCH ×2 (09:25→20:00)
--- NOTE | 2019-03-07 13:29 | NUR ---
Report given to Hodan using "Unit to Unit Transfer" intervention. Urine catheter removed at 1255. Central line removed and 2 PIV's flushing.
--- NOTE | 2019-03-07 14:09 | NUR ---
Report called to receiving nurseHodan. Transferred via wheelchair Belongings . Special Issues communicated to receiving nurse. Ariadne transferred to room 316. See "unit to unit transfer" intervention for items discussed.
--- NOTE | 2019-03-07 14:28 | NUR ---
Patient in room MED 316. I have received report from CARLOS Figueroa and had the opportunity to ask questions and assume patient care.
--- NOTE | 2019-03-07 18:15 | NUR ---
Patient in room MED 316. I have received report from CARLOS Figueroa and had the opportunity to ask questions and assume patient care.
--- NOTE | 2019-03-07 18:19 | NUR ---
Problems reprioritized. Patient report given, questions answered & plan of care reviewed with CARLOS Cleveland
--- NOTE | 2019-03-07 18:27 | NUR ---
I have reviewed and agree with all interventions, assessments performed and documented by CARLOS Figueroa.
--- NOTE | 2019-03-07 18:30 | NUR ---
PATIENT CONVERTED FROM NORMAL SINUS RHYTHM TO ATRIAL FIBRILLATION. CALLED [place] [facility]. ORDERED AMIO DRQAMAR. STARTED PER PROTOCOL.
[2019-03-07] MEDS ORDERED: amiodarone 150mg/dext, iso-os 100 ML IV ONE (19:10)
[2019-03-07] MEDS: amiodarone/D5 360MG/200ML BAG 200 ML IV SCH (19:47)
[2019-03-07] MEDS: potassium Cl 20 mEq SR tablet PO SCH (20:00)
[2019-03-07] MEDS: magnesium Cl slow-release 64mg tablet PO SCH (20:00)
[2019-03-07] MEDS: tamsulosin 0.4mg capsule PO SCH (22:28)
[2019-03-08] VITALS (10 sets, daily range): BP systolic 104–139; BP diastolic 58–77
[2019-03-08] MEDS: amiodarone/D5 360MG/200ML BAG 200 ML IV SCH ×4 (01:55→19:26)
--- NOTE | 2019-03-08 02:28 | NUR ---
PATIENT CONVERTED FROM A.FIB BACK TO NORMAL SINUS RHYTHM. PATIENT IS STILL ON AMIO DRIP. WILL CONTINUE TO MONITOR.
[2019-03-08 06:00] LABS: BASOPHILS % (AUTO) 0.1 % (0-1); EOSINOPHILS # (AUTO) 0.1 X10'3 (0-0.9); EOSINOPHILS % (AUTO) 0.7 % (0-6); HEMATOCRIT 26.9 % (42.0-52.0); HEMOGLOBIN 8.9 g/dl (14.0-17.9); LYMPHOCYTES # (AUTO) 2.1 X10'3 (1.1-4.8); LYMPHOCYTES % (AUTO) 14.8 % (21-51); MEAN CORPUSCULAR HEMOGLOBIN 33.4 PG (27.0-31.0); MEAN CORPUSCULAR HGB CONC 33.1 g/dL (33.0-36.5); MEAN PLATELET VOLUME 9.3 FL (7.4-10.4); MONOCYTES # (AUTO) 1.6 X10'3 (0-0.9); MONOCYTES % (AUTO) 11.5 % (2-12); NEUTROPHILS # (AUTO) 10.2 X10'3 (1.8-7.7); NEUTROPHILS % (AUTO) 72.9 % (42-75); PLATELET COUNT 134 X10'3 (140-440); RED BLOOD COUNT 2.67 X10'6 (4.70-6.10); RED CELL DISTRIBUTION WIDTH 15.8 % (11.5-14.5)
[2019-03-08 06:16] LABS: ALBUMIN 2.8 G/DL (3.4-5.0); ANION GAP 12 (8-16); BLOOD UREA NITROGEN 21 MG/DL (7-18); BUN/CREATININE RATIO 25.6 (5.4-32.0); CHLORIDE 108 MMOL/L (99-107); CREATININE 0.82 MG/DL (0.60-1.10); GLUCOSE 113 MG/DL (70-104); SODIUM 143 MMOL/L (135-145); TOTAL CARBON DIOXIDE 22.7 MMOL/L (24-32); eGFR > 90 ML/MIN
--- NOTE | 2019-03-08 06:30 | NUR ---
Problems reprioritized. Patient report given, questions answered & plan of care reviewed with CARLOS OCHOA.
[2019-03-08] MEDS: magnesium Cl slow-release 64mg tablet PO SCH ×2 (07:41→19:50)
[2019-03-08] MEDS: pantoprazole 40mg Tablet.DR PO SCH (08:02)
[2019-03-08] MEDS: allopurinol 300 MG tablet PO SCH (08:03)
[2019-03-08] MEDS: docusate sod 100mg capsule PO SCH ×2 (08:03→19:50)
[2019-03-08] MEDS: potassium Cl 20 mEq SR tablet PO SCH ×2 (08:03→19:50)
[2019-03-08] MEDS: aspirin 325mg tablet, delayed-release (Ecotrin) PO SCH (08:03)
[2019-03-08] MEDS: lactobacillus rhamnosus 10,000 MMU CELLS/CAPSULE PO SCH ×2 (08:03→19:50)
[2019-03-08] MEDS: atorvastatin 10mg tablet PO SCH (08:03)
[2019-03-08] MEDS: metoprolol tartrate 12.5mg (1/2 tablet) PO SCH ×2 (08:05→19:49)
[2019-03-08] MEDS ORDERED: furosemide 40mg/4ml inj IV ONE (08:30)
[2019-03-08] MEDS ORDERED: diphenhydrAMINE 25mg capsule PO PRN (10:50)
--- NOTE | 2019-03-08 14:52 | NUR ---
Initial: Pt s/p CABG x 4 POD 4 seen at bedside with SO present provided with written and verbal heart healthy and protein following cardiac surgery education with RD contact information. Pt currently on no concentrated sweets diet with fluctuating PO intake 50-75% with multiple refusal of meals, up to 100% at breakfast this morning. Pt reports low appetite following surgery and denies additional protein or food preferences at this time. Pt and SO reports drinking Premier Protein at home, RD encouraged to continue with them given the high protein quantity. Pt denies food allergies or difficulty with meals. LBM 03/07. Will continue to follow. Recommendations: 1) Continue NCS diet 2) Encourage PO intake 3) Monitor need for/agreeableness to additional protein 4) Routine bowel care 5) Wt per rx Addendum: 03/08/19 at [address] Amended: Links added.
[2019-03-08] MEDS: HYDROcodone/acetaminophen 10/325mg tab PO PRN (15:15)
[2019-03-08] MEDS: heparin, porcine 5000 units/ml vial SQ SCH (16:06)
--- NOTE | 2019-03-08 18:00 | NUR ---
Patient in room MED 316. I have received report from Madison GONZALEZ and had the opportunity to ask questions and assume patient care.
--- NOTE | 2019-03-08 18:25 | NUR ---
Problems reprioritized. Patient report given, questions answered & plan of care reviewed with CARLOS Iglesias.
[2019-03-09] VITALS (8 sets, daily range): BP systolic 105–121; BP diastolic 56–77
[2019-03-09] MEDS: amiodarone/D5 360MG/200ML BAG 200 ML IV SCH (02:33)
[2019-03-09 04:53] LABS: BASOPHILS # (AUTO) 0.1 X10'3 (0-0.2); BASOPHILS % (AUTO) 0.5 % (0-1); EOSINOPHILS # (AUTO) 0.2 X10'3 (0-0.9); EOSINOPHILS % (AUTO) 1.7 % (0-6); HEMATOCRIT 25.7 % (42.0-52.0); HEMOGLOBIN 8.6 g/dl (14.0-17.9); LYMPHOCYTES # (AUTO) 1.9 X10'3 (1.1-4.8); LYMPHOCYTES % (AUTO) 14.8 % (21-51); MEAN CORPUSCULAR HEMOGLOBIN 33.6 PG (27.0-31.0); MEAN CORPUSCULAR HGB CONC 33.6 g/dL (33.0-36.5); MEAN PLATELET VOLUME 8.7 FL (7.4-10.4); MONOCYTES # (AUTO) 1.5 X10'3 (0-0.9); MONOCYTES % (AUTO) 11.6 % (2-12); NEUTROPHILS # (AUTO) 9.2 X10'3 (1.8-7.7); NEUTROPHILS % (AUTO) 71.4 % (42-75); PLATELET COUNT 175 X10'3 (140-440); RED BLOOD COUNT 2.57 X10'6 (4.70-6.10); RED CELL DISTRIBUTION WIDTH 15.5 % (11.5-14.5); WHITE BLOOD COUNT 12.9 X10'3 (4.5-11.0)
[2019-03-09 05:00] LABS: ALBUMIN 2.9 G/DL (3.4-5.0); ANION GAP 9 (8-16); BLOOD UREA NITROGEN 22 MG/DL (7-18); BUN/CREATININE RATIO 23.9 (5.4-32.0); CALCIUM 8.3 MG/DL (8.5-10.1); CHLORIDE 107 MMOL/L (99-107); CREATININE 0.92 MG/DL (0.60-1.10); GLUCOSE 108 MG/DL (70-104); POTASSIUM 3.8 MMOL/L (3.5-5.1); SODIUM 143 MMOL/L (135-145); TOTAL CARBON DIOXIDE 27.4 MMOL/L (24-32); eGFR 80 ML/MIN
[2019-03-09] MEDS: potassium Cl 20 mEq SR tablet PO PRN (05:33)
--- NOTE | 2019-03-09 06:00 | NUR ---
Problems reprioritized. Patient report given, questions answered & plan of care reviewed with CARLOS Wisdom.
[2019-03-09 06:11] LABS: MAGNESIUM 1.7 MG/DL (1.5-2.4)
--- NOTE | 2019-03-09 06:30 | NUR ---
Patient in room MED 316. I have received report from Domingo GONZALEZ and had the opportunity to ask questions and assume patient care.
[2019-03-09] MEDS: potassium Cl 20 mEq SR tablet PO SCH ×2 (07:55→19:53)
[2019-03-09] MEDS: docusate sod 100mg capsule PO SCH ×2 (07:55→19:53)
[2019-03-09] MEDS: amiodarone 200mg tablet PO SCH ×2 (07:55→19:53)
[2019-03-09] MEDS: tamsulosin 0.4mg capsule PO SCH (07:55)
[2019-03-09] MEDS: aspirin 325mg tablet, delayed-release (Ecotrin) PO SCH (07:56)
[2019-03-09] MEDS: magnesium Cl slow-release 64mg tablet PO SCH ×2 (07:56→19:53)
[2019-03-09] MEDS: pantoprazole 40mg Tablet.DR PO SCH (07:56)
[2019-03-09] MEDS: allopurinol 300 MG tablet PO SCH (07:56)
[2019-03-09] MEDS: lactobacillus rhamnosus 10,000 MMU CELLS/CAPSULE PO SCH ×2 (07:56→19:53)
[2019-03-09] MEDS: metoprolol tartrate 12.5mg (1/2 tablet) PO SCH ×2 (07:57→19:55)
[2019-03-09] MEDS: heparin, porcine 5000 units/ml vial SQ SCH ×3 (07:58→17:49)
[2019-03-09] MEDS: atorvastatin 10mg tablet PO SCH (07:58)
[2019-03-09 08:34] LABS: NUCLEATED RED BLOOD CELLS 7 /100WBC (0-0); TOTAL CELLS COUNTED 100
[2019-03-09 08:36] LABS: ACANTHOCYTES 1+; LARGE PLATELETS FEW; PLATELET ESTIMATE NORMAL; POLYCHROMASIA 1+; SCHISTOCYTES FEW
[2019-03-09] MEDS ORDERED: traMADol 50MG tablet PO PRN (11:05)
[2019-03-09] MEDS: HYDROcodone/acetaminophen 10/325mg tab PO PRN (14:03)
--- NOTE | 2019-03-09 18:29 | NUR ---
Problems reprioritized. Patient report given, questions answered & plan of care reviewed with Megha GONZALEZ.
[2019-03-10 05:28] LABS: ALBUMIN 2.7 G/DL (3.4-5.0); ANION GAP 7 (8-16); BLOOD UREA NITROGEN 21 MG/DL (7-18); BUN/CREATININE RATIO 21.9 (5.4-32.0); CALCIUM 8.4 MG/DL (8.5-10.1); CHLORIDE 106 MMOL/L (99-107); CREATININE 0.96 MG/DL (0.60-1.10); GLUCOSE 94 MG/DL (70-104); MAGNESIUM 1.7 MG/DL (1.5-2.4); POTASSIUM 4.1 MMOL/L (3.5-5.1); SODIUM 140 MMOL/L (135-145); TOTAL CARBON DIOXIDE 27.5 MMOL/L (24-32); eGFR 76 ML/MIN
[2019-03-10 05:30] LABS: BASOPHILS % (AUTO) 0.3 % (0-1); EOSINOPHILS # (AUTO) 0.4 X10'3 (0-0.9); HEMATOCRIT 25.7 % (42.0-52.0); HEMOGLOBIN 8.8 g/dl (14.0-17.9); LYMPHOCYTES # (AUTO) 2.5 X10'3 (1.1-4.8); LYMPHOCYTES % (AUTO) 18.4 % (21-51); MEAN CORPUSCULAR HEMOGLOBIN 34.2 PG (27.0-31.0); MEAN CORPUSCULAR HGB CONC 34.1 g/dL (33.0-36.5); MEAN CORPUSCULAR VOLUME 100.2 FL (78-98); MEAN PLATELET VOLUME 8.9 FL (7.4-10.4); MONOCYTES # (AUTO) 1.9 X10'3 (0-0.9); MONOCYTES % (AUTO) 13.6 % (2-12); NEUTROPHILS # (AUTO) 8.9 X10'3 (1.8-7.7); NEUTROPHILS % (AUTO) 64.7 % (42-75); PLATELET COUNT 211 X10'3 (140-440); RED BLOOD COUNT 2.56 X10'6 (4.70-6.10); RED CELL DISTRIBUTION WIDTH 15.4 % (11.5-14.5); WHITE BLOOD COUNT 13.8 X10'3 (4.5-11.0)
[2019-03-10 06:00] VITALS: BP 125/76
--- NOTE | 2019-03-10 06:00 | NUR ---
Patient in room MED 316. I have received report from CARLOS [place] and had the opportunity to ask questions and assume patient care.
--- NOTE | 2019-03-10 06:25 | NUR ---
Problems reprioritized. Patient report given, questions answered & plan of care reviewed with CARLOS Wisdom and CARLOS Gill.
[2019-03-10] MEDS: HYDROcodone/acetaminophen 10/325mg tab PO PRN ×2 (07:12→19:48)
[2019-03-10] MEDS: amiodarone 200mg tablet PO SCH ×2 (07:13→19:41)
[2019-03-10] MEDS: allopurinol 300 MG tablet PO SCH (07:13)
[2019-03-10] MEDS: potassium Cl 20 mEq SR tablet PO SCH ×2 (07:14→19:38)
[2019-03-10] MEDS: docusate sod 100mg capsule PO SCH ×2 (07:14→19:38)
[2019-03-10] MEDS: aspirin 325mg tablet, delayed-release (Ecotrin) PO SCH (07:15)
[2019-03-10] MEDS: pantoprazole 40mg Tablet.DR PO SCH (07:15)
[2019-03-10] MEDS: potassium Cl 20 mEq SR tablet PO PRN ×2 (07:15→13:29)
[2019-03-10] MEDS: atorvastatin 10mg tablet PO SCH (07:15)
[2019-03-10] MEDS: magnesium Cl slow-release 64mg tablet PO SCH ×2 (07:15→19:41)
[2019-03-10] MEDS: metoprolol tartrate 12.5mg (1/2 tablet) PO SCH ×2 (07:16→19:41)
[2019-03-10] MEDS: tamsulosin 0.4mg capsule PO SCH (07:17)
[2019-03-10] MEDS: lactobacillus rhamnosus 10,000 MMU CELLS/CAPSULE PO SCH ×2 (07:17→19:41)
[2019-03-10] MEDS: heparin, porcine 5000 units/ml vial SQ SCH ×3 (07:18→16:48)
[2019-03-10 09:26] LABS: NUCLEATED RED BLOOD CELLS 11 /100WBC (0-0); TOTAL CELLS COUNTED 100
[2019-03-10 09:32] LABS: PLATELET ESTIMATE NORMAL
[2019-03-10 09:33] LABS: ACANTHOCYTES FEW; ANISOCYTOSIS 1+; POLYCHROMASIA 1+
[2019-03-10 11:00] VITALS: BP 90/60
[2019-03-10 12:00] VITALS: BP 88/58
--- NOTE | 2019-03-10 12:27 | NUR ---
Spoke with Tylor Gordon Made him aware that patient manual BP at 1100 90/60, 1200 88/58. No orders given at this time.
[2019-03-10 15:00] VITALS: BP 109/66
--- NOTE | 2019-03-10 17:23 | NUR ---
[place] documentation and med administration: I have reviewed and agree with all interventions, assessments performed and documented by Bridget GONZALEZ.
[2019-03-10 18:00] VITALS: BP 94/61
--- NOTE | 2019-03-10 18:30 | NUR ---
Problems reprioritized. Patient report given, questions answered & plan of care reviewed with CARLOS Cleveland & CARLOS Mcknight.
[2019-03-10 22:00] VITALS: BP 113/87
[2019-03-11] MEDS: heparin, porcine 5000 units/ml vial SQ SCH ×2 (00:03→08:26)
[2019-03-11 02:00] VITALS: BP 109/74
[2019-03-11 05:10] LABS: ALBUMIN 2.8 G/DL (3.4-5.0); ANION GAP 9 (8-16); BLOOD UREA NITROGEN 22 MG/DL (7-18); CALCIUM 8.8 MG/DL (8.5-10.1); CHLORIDE 106 MMOL/L (99-107); CREATININE 1.05 MG/DL (0.60-1.10); GLUCOSE 88 MG/DL (70-104); MAGNESIUM 2.4 MG/DL (1.5-2.4); POTASSIUM 4.4 MMOL/L (3.5-5.1); SODIUM 140 MMOL/L (135-145); TOTAL CARBON DIOXIDE 25.1 MMOL/L (24-32); eGFR 69 ML/MIN
[2019-03-11] MEDS: HYDROcodone/acetaminophen 10/325mg tab PO PRN ×2 (05:30→14:04)
[2019-03-11 06:00] VITALS: BP 112/91
--- NOTE | 2019-03-11 06:32 | NUR ---
Patient in room MED 316. I have received report from CARLOS Iglesias and had the opportunity to ask questions and assume patient care.
[2019-03-11] MEDS: metoprolol tartrate 12.5mg (1/2 tablet) PO SCH (08:00)
[2019-03-11] MEDS: magnesium Cl slow-release 64mg tablet PO SCH (08:23)
[2019-03-11] MEDS: aspirin 325mg tablet, delayed-release (Ecotrin) PO SCH (08:23)
[2019-03-11] MEDS: pantoprazole 40mg Tablet.DR PO SCH (08:23)
[2019-03-11] MEDS: docusate sod 100mg capsule PO SCH (08:23)
[2019-03-11] MEDS: amiodarone 200mg tablet PO SCH (08:23)
[2019-03-11] MEDS: atorvastatin 10mg tablet PO SCH (08:23)
[2019-03-11] MEDS: potassium Cl 20 mEq SR tablet PO SCH (08:23)
[2019-03-11] MEDS: lactobacillus rhamnosus 10,000 MMU CELLS/CAPSULE PO SCH (08:23)
[2019-03-11] MEDS: allopurinol 300 MG tablet PO SCH (08:25)
[2019-03-11] MEDS: tamsulosin 0.4mg capsule PO SCH (08:25)
[2019-03-11 10:30] VITALS: BP 90/51
[2019-03-11 11:00] VITALS: BP 90/51
[2019-03-11 14:09] VITALS: BP 86/53
--- NOTE | 2019-03-11 14:50 | NUR ---
CALLED REPORT TO LEXIE AT [facility], ALL QUESTIONS ANSWERED.
--- NOTE | 2019-03-11 15:08 | NUR ---
Patient stable for transfer per MD orders. All instructions reviewed and questions answered. PIV discontinued, cannula intact, clean dry dressing in place. family dentist removed. All personal belongings collected and sent with patient. Dayna cargo wheeled patient out of facility at 1452 to be transported to [facility].
== END 2019-03-11 14:51 | DRG 234 ==
LOC: SSTAY O 05:02 → MED 3N 11:32 → ICU 2S 03-04 11:38 → MED 3N 03-07 13:45
PROVIDERS: ADMIT Internal Medicine Interventional Cardiology; ATTEND Thoracic Surgery (Cardiothoracic Vascular Surgery)
PROC: 4A023N7 Measurement of Cardiac Sampling and Pressure, Left Heart, Percutaneous Approach (ICD-10-PCS; 2019-03-03)
PROC: B2111ZZ Fluoroscopy of Multiple Coronary Arteries using Low Osmolar Contrast (ICD-10-PCS; 2019-03-03)
PROC: B2151ZZ Fluoroscopy of Left Heart using Low Osmolar Contrast (ICD-10-PCS; 2019-03-03)
PROC: 021209W Bypass Coronary Artery, Three Arteries from Aorta with Autologous Venous Tissue, Open Approach (ICD-10-PCS; 2019-03-04)
PROC: 06BP4ZZ Excision of Right Saphenous Vein, Percutaneous Endoscopic Approach (ICD-10-PCS; 2019-03-04)
PROC: 5A1221Z Performance of Cardiac Output, Continuous (ICD-10-PCS; 2019-03-04)
PROC: B24BZZ4 Ultrasonography of Heart with Aorta, Transesophageal (ICD-10-PCS; 2019-03-04)
PROC: 02100Z9 Bypass Coronary Artery, One Artery from Left Internal Mammary, Open Approach (ICD-10-PCS; principal; 2019-03-04 07:18)
PROC: 30233N1 Transfusion of Nonautologous Red Blood Cells into Peripheral Vein, Percutaneous Approach (ICD-10-PCS; 2019-03-05)
PROC: 02HV33Z Insertion of Infusion Device into Superior Vena Cava, Percutaneous Approach (ICD-10-PCS; 2019-03-05)
PROC: 4A133B3 Monitoring of Arterial Pressure, Pulmonary, Percutaneous Approach (ICD-10-PCS; 2019-03-05)
PROC: 02HP32Z Insertion of Monitoring Device into Pulmonary Trunk, Percutaneous Approach (ICD-10-PCS; 2019-03-05)
PROC: 30233N1 Transfusion of Nonautologous Red Blood Cells into Peripheral Vein, Percutaneous Approach (ICD-10-PCS; 2019-03-06)
DX: I25.119 Atherosclerotic heart disease of native coronary artery with unspecified angina pectoris (principal); I50.32 Chronic diastolic (congestive) heart failure; D62 Acute posthemorrhagic anemia; R58 Hemorrhage, not elsewhere classified; E78.5 Hyperlipidemia, unspecified; I48.91 Unspecified atrial fibrillation; I65.29 Occlusion and stenosis of unspecified carotid artery; I71.2 Thoracic aortic aneurysm, without rupture; I65.23 Occlusion and stenosis of bilateral carotid arteries; I11.0 Hypertensive heart disease with heart failure; M10.9 Gout, unspecified; N40.0 Benign prostatic hyperplasia without lower urinary tract symptoms; Z90.81 Acquired absence of spleen; Z79.899 Other long term (current) drug therapy; Z85.46 Personal history of malignant neoplasm of prostate; Z92.3 Personal history of irradiation
CPT/HCPCS: 36415; 36600; 71045; 71046; 80048; 80053; 80061; 82330; 82435; 82803; 82947; 82948; 83036; 83735; 84100; 84132; 84295; 85018; 85025; 85027; 85347; 85384; 85610; 85730; 86885; 86900; 86901; 86920; 87081; 93005; 93312; 93325; 93458; 93970; 94002; 94010; 94668; 94760; 97110; 97116; 97161; 97530; 99152; A4618; A4620; A6258; A6446; A6449; A7000; A7048; C1769; C1894; C9113; G0378; J0171; J0282; J0690; J1265; J1644; J1815; J1940; J2001; J2060; J2250; J2270; J2370; J2720; J2930; J3010; J3370; J3475; J3480; J3490; J7030; J7040; J7050; J7060; J7120; P9016; P9045; P9047; Q0163; Q9967

== ENCOUNTER 2022-04-15 09:54 | Emergency (ER) | payer MEDICARE, BC ==
[~2022-04-15] VITALS: Ht 180.3 cm; Wt 60.0 kg
[~2022-04-15 09:54] MED LIST: ALLO300T8 PO; ASPI-611 PO; EVOL140P3 SQ; FLO0.4C PO; MIDO5TAB4 PO; MIRA50TA PO; MULT-1085 PO; OXYB10TA30 PO; VITA-268 PO
[2022-04-15 11:46] LABS: BASOPHILS # (AUTO) 0.1 X10'3 (0-0.2); BASOPHILS % (AUTO) 1.1 % (0-1); EOSINOPHILS # (AUTO) 0.3 X10'3 (0-0.9); EOSINOPHILS % (AUTO) 2.1 % (0-6); HEMATOCRIT 29.4 % (42.0-52.0); HEMOGLOBIN 9.5 g/dl (14.0-17.9); LYMPHOCYTES # (AUTO) 1.4 X10'3 (1.1-4.8); LYMPHOCYTES % (AUTO) 11.2 % (21-51); MEAN CORPUSCULAR HEMOGLOBIN 31.6 PG (27.0-31.0); MEAN CORPUSCULAR HGB CONC 32.2 g/dL (33.0-36.5); MEAN CORPUSCULAR VOLUME 98.4 FL (78-98); MEAN PLATELET VOLUME 8.7 FL (7.4-10.4); MONOCYTES # (AUTO) 1.6 X10'3 (0-0.9); MONOCYTES % (AUTO) 12.6 % (2-12); NEUTROPHILS # (AUTO) 9.1 X10'3 (1.8-7.7); PLATELET COUNT 511 X10'3 (140-440); RED BLOOD COUNT 2.99 X10'6 (4.70-6.10); RED CELL DISTRIBUTION WIDTH 15.7 % (11.5-14.5); WHITE BLOOD COUNT 12.5 X10'3 (4.5-11.0)
[2022-04-15 13:27] LABS: COLOR,URINE YELLOW (Yellow); GLUCOSE, URINE NEGATIVE (Neg); KETONES,URINE NEGATIVE (Neg); LEUKOCYTE ESTERASE ,URINE SMALL (Neg); NITRITES, URINE NEGATIVE (Neg); OCCULT BLOOD,URINE NEGATIVE (Neg); PROTEIN,URINE TRACE mg/dl (Neg); UROBILINOGEN,URINE 0.2 E.U/dL (0.2-1.0)
[2022-04-15 13:30] LABS: CLARITY,URINE SLIGHTLY CLOUDY (Clear); UA COLLECTION TYPE OTHER
[2022-04-15 13:35] LABS: BACTERIA,URINE FEW /HPF (Neg); CAL OXALATE CRYSTALS FEW /HPF (NEGATIVE); HYALINE CASTS 0-3 /LPF (NEGATIVE); MUCUS STRANDS FEW /LPF (Neg); RBC,URINE 0-2 /HPF (0-2); SQUAMOUS EPITHELIAL CELL,UR FEW /LPF (FEW); WBC CLUMPS,URINE FEW /HPF (NEGATIVE)
[2022-04-15 14:49] LABS: ALANINE AMINOTRANSFERASE 9 U/L (12-78); ALBUMIN 2.3 G/DL (3.4-5.0); ALBUMIN/GLOBULIN RATIO 0.5 (1.1-1.5); ALKALINE PHOSPHATASE 99 IU/L (46-116); ANION GAP 7 (8-16); ASPARTATE AMINO TRANSFERASE 18 U/L (10-37); BILIRUBIN,TOTAL 0.3 MG/DL (0.1-1.0); BLOOD UREA NITROGEN 23 MG/DL (7-18); BUN/CREATININE RATIO 23.7 (5.4-32.0); CALCIUM 9.2 MG/DL (8.5-10.1); CHLORIDE 106 MMOL/L (99-107); CREATININE 0.97 MG/DL (0.60-1.10); GLUCOSE 124 MG/DL (70-104); POTASSIUM 3.4 MMOL/L (3.5-5.1); SODIUM 142 MMOL/L (135-145); TOTAL CARBON DIOXIDE 29.2 MMOL/L (24-32); TOTAL PROTEIN 6.5 G/DL (6.4-8.2); eGFR 75 ML/MIN
[2022-04-15 14:55] LABS: MAGNESIUM 1.6 MG/DL (1.5-2.4)
[2022-04-15] MEDS ORDERED: normal saline 1000ML IV soln IVB ONE (16:40)
[2022-04-15 18:42] VITALS: BP 123/65
== END 2022-04-15 18:40 | disposition home or self-care (01) ==
LOC: ER 09:54
DX: Z13.89 Encounter for screening for other disorder (principal); I25.10 Atherosclerotic heart disease of native coronary artery without angina pectoris; E78.00 Pure hypercholesterolemia, unspecified; Z86.2 Personal history of diseases of the blood and blood-forming organs and certain disorders involving the immune mechanism; Z98.890 Other specified postprocedural states; Z88.8 Allergy status to other drugs, medicaments and biological substances; Z79.82 Long term (current) use of aspirin; Z79.899 Other long term (current) drug therapy
CPT/HCPCS: 36415; 80053; 81001; 83605; 83735; 83880; 84145; 85025; 87040; 87088; 99283; J7030